=== PATIENT | male | born 1980 | race Caucasian/White ===

== ENCOUNTER 2016-09-28 20:53 | Emergency (ER) | payer OTHER ==
[~2016-09-28] VITALS: Ht 188 cm; Wt 71.9 kg
[2016-09-28] MEDS ORDERED: XANAX2 MG PO (22:45)
[2016-09-28 22:55] VITALS: BP 143/95
== END 2016-09-28 23:00 | disposition home or self-care (01) ==
LOC: EME 20:53
DX: Z76.0 Encounter for issue of repeat prescription (principal); F41.9 Anxiety disorder, unspecified
CPT/HCPCS: 99281; 99284

== ENCOUNTER 2016-12-29 01:22 | Emergency (ER) | payer OTHER ==
[~2016-12-29] VITALS: Ht 185.4 cm; Wt 64.5 kg
[~2016-12-29 01:22] MED LIST: XANAX2 MG PO
[2016-12-29 01:29] VITALS: BP 147/93
[2016-12-29 03:37] LABS: CHLORIDE 103 mEq/L (99-109); POTASSIUM 4.3 mEq/L (3.7-5.4); SODIUM 139 mEq/L (136-147)
[2016-12-29 03:39] LABS: GLUCOSE 101 mg/dL (70-99)
[2016-12-29 03:41] LABS: ANION GAP 10 MEQ/L (2-14)
[2016-12-29 03:43] LABS: GFR ESTIMATE (CALCULATED) > 59 mL/min/
[2016-12-29 03:44] LABS: UREA NITROGEN (BUN) 12 mg/dL (9-23)
== END 2016-12-29 04:50 | disposition home or self-care (01) ==
LOC: EME 01:22
PROVIDERS: Emergency Medicine
DX: S01.02XD Laceration with foreign body of scalp, subsequent encounter (principal); W17.89XD Other fall from one level to another, subsequent encounter; G89.18 Other acute postprocedural pain; F41.9 Anxiety disorder, unspecified; Z91.14 Patient's other noncompliance with medication regimen; F17.200 Nicotine dependence, unspecified, uncomplicated; Z98.890 Other specified postprocedural states
CPT/HCPCS: 80048; 99281; 99284